=== PATIENT | female | born 1980 | race African-American/Black ===

== ENCOUNTER 2020-09-16 21:32 | Emergency (ER) | payer BC, OTHER ==
[~2020-09-16] VITALS: Ht 165.1 cm; Wt 97.5 kg
--- NOTE | ~2020-09-16 | EMS ---
[address] [address] EMS Patient Care Report Name: SORAIDA PETERSEN Room #: DEP SERGIO Guzman#: [id number] Admission: 09/16/20 Attend Phys: Discharge: 09/17/20 Date of : 82 Report #: [id number] THIS REPORT FOR: //name// Report Transmitted: 09/17/2020 05:58 EMS Care Summary [facility] Incident [id number] @ 09/16/2020 20:55 Incident Location [address] [place] [address] Patient SORAIDA PETERSEN Female, 40 Years 1980 Patient Address [address] [place] [address] Patient History Brain Tumor, Patient Allergies No known allergies, Patient Medications None Reported, Chief Complaint near syncopal episode Disposition Transported No Lights/[place] Dispatch Reason Sick Person Transported To [facility] Narrative DISPATCHED EMERGENT RESPONDED EMERGENT ON A SICK. ARRIVED ON SCENE WITHOUT INCIDENT. UPON ARRIVAL PATIENT WAS FOUND SEATED IN LIVING ROOM OF RESIDENCE. PATIENT [address] [address] EMS Patient Care Report Name: SORAIDA PETERSEN Room #: DEP [facility]#: [id number] Admission: 09/16/20 Attend Phys: Discharge: 09/17/20 Date of : 82 Report #: [id number] ALERT AND ORIENTED X4 REPORTING THAT SHE FELT DIZZY AND WEAK SUDDENLY JUST PRIOR TO CALLING EMS. PATIENT STATED SHE WAS STANDING AND WALKING THROUGH RESIDENCE WHEN THIS SUDDENLY OCCURRED. PATIENT ALSO REPORTED MOMENTARY SHORTNESS OF BREATH. PATIENT SAT DOWN AND DRANK WATER AND BEGAN TO FEEL BETTER. AT THIS TIME PATIENT REPORTS SHE IS FEELING BETTER BUT STILL REPORTS MILD DIZZINESS. PATIENT REPORTS SHE HAS NEVER HAD A SYNCOPAL EPISODE BUT SHE BELIEVES SHE WAS ABOUT TO PASS OUT. PATIENT REPORTS HAVING HISTORY OF BRAIN TUMOR WELL AND IS REQUESTING TRANSPORT TO [facility] AT THIS TIME. PATIENT IS ASSISTED TO STRETCHER AT FRONT DOOR OF RESIDENCE. SEATED ON STRETCHER, SECURED WITH RESTRAINTS AND TAKEN TO AMBULANCE. EN ROUTE PATIENT DENIES ANY NEW COMPLAINTS. NO CHANGE IN CURRENT COMPLAINTSS. PATIENT REMAINS CALM AND COOPERATIVE ON STRETCHER. PATIENT REQUESTED TO WAIT UNTIL ARRIVAL TO HOSPITAL FOR IV ACCESS. PATIENT DENIES ANY COVID SYMPTOMS, DENIES ANY COVID EXPOSURE. VITALS MONITORED THROUGHOUT TRANSPORT. RADIO REPORT CALLED TO ED. UPON ARRIVAL TO ED PATIENT IS TAKEN TO ED ROOM WHERE PATIENT REPORT IS GIVEN DIRECTLY TO RN AT BEDSIDE. PATIENT IS ABLE TO SCOOT FROM STRETCHER TO BED WITHOUT DIFFICULTY. PATIENT CARE TRANSFERRED DIRECTLY TO RN AT BEDSIDE. PATIENT IN STABLE CONDITION AT TRANSFER OF CARE. Initial Vitals @21:02P: 83,R: 18,Pain: 0/10,GCS: 15,Glucose: 84,SpO2: 99,Revised Trauma: 12, Assessments @21:02MENTAL:Time Oriented,Person Oriented,Place Oriented,Event Oriented,SKIN:HEENT:Eyes: Right Pupil: 4-mm,Eyes: Left Pupil: 4-mm,Head/Face: No Abnormalities,LUNG SOUNDS:General: No Abnormalities,ABDOMEN:General: No Abnormalities,PELVIS//GI:No Abnormalities,EXTREMITIES:Left Arm: No Abnormalities,Right Arm: No Abnormalities,Left Leg: No Abnormalities,Right Leg: No Abnormalities,PULSE:Radial: 2+ Normal,NEURO:No Abnormalities, Impression Syncope / Fainting Procedures @21:04ALS AssessmentResponse: UnchangedSucceeded Timeline 20:54,Call Received 20:54,Psap Call 20:55,Dispatched 20:57,En Route 21:00,Initial Responder On Scene 21:00,On Scene [facility] [address] [place] [address] EMS Patient Care Report Name: NICOLAMELINDASORAIDA Kiara [id number] Admission: 09/16/20 Attend Phys: Discharge: 09/17/20 Date of : 82 Report #: [id number] 21:01,At Patient 21:02,BP: 108/ M,PULSE: 83,RR: 18 R,SPO2: 99 Ox,ETCO2: ,B,PAIN: 0,GCS: 15, 21:04,ALS Assessment,Response: UnchangedSucceeded, 21:11,Depart Scene 21:27,At Destination 21:58,Call Closed Disclaimer v1.1 Copyright 2020 [employer] This EMS Care Summary contains data elements from the applicable legal record (which may be displayed differently). It is designed to provide pertinent information for the following purposes: continuity of care, clinical quality, and state data reporting. The complete legal record is available to ED staff and administrators of the receiving hospital in [facility]'s Patient Tracker. All data is provided "as is."
[~2020-09-16 21:32] MED LIST: APAP500 PO; COLACE 100 MG100 MG PO; IBUPROFEN 800800 M1 PO; IROSPAN 24/6 T1 EACH PO; LANOLIN56 GM; NORCO 10-325 T1 EAC1 PO; TRINATE TABLET1 TAB PO; VITAMIN D400 UNI2 PO
[2020-09-17 01:09] LABS: ABSOLUTE NEUTROPHILS 3.4 thou/uL (1.4-8.2); BASOPHILS 0.9 % (0.0-2.0); HEMOGLOBIN 12.3 gm/dL (12.0-15.0)
[2020-09-17 01:11] LABS: EOSINOPHILS 2.8 % (0.0-3.0); HEMATOCRIT 37.5 % (37.0-47.0); LYMPHOCYTES 31.2 % (24.0-44.0); MCH 28.9 pg (26.0-34.0); MCHC 32.7 g/dL (28.0-37.0); MCV 88.4 fL (80.0-100.0); MONOCYTES 5.4 % (1.0-8.0); PLATELET COUNT 264 thou/uL (150-400); POLYS 59.7 % (36.0-66.0); RBC 4.24 mil/uL (4.20-5.00); RDW 15.3 % (10.5-14.5); WBC 5.7 thou/uL (4.0-11.0)
[2020-09-17 01:18] LABS: ANION GAP 11 mmol/L (7-16); BUN 12 mg/dL (7-18); CHLORIDE 106 mmol/L (98-107); CO2 22 mmol/L (21-32); CREATININE 0.9 mg/dL (0.6-1.0); GLUCOSE 98 mg/dL (74-106); POTASSIUM 3.8 mmol/L (3.5-5.1); SODIUM 139 mmol/L (136-145)
[2020-09-17 01:29] LABS: ALBUMIN 4.2 g/dL (3.4-5.0); DIRECT BILIRUBIN < 0.1 mg/dL (<0.1-0.2); SGOT 23 U/L (15-37); SGPT 29 U/L (30-65); TOTAL BILIRUBIN 0.2 mg/dL (0.2-1.0); TROPONIN-I <0.06 ng/mL (<0.06)
[2020-09-17 01:30] VITALS: BP 123/84
--- NOTE | 2020-09-17 07:28 | EKG ---
[facility] [place] [address] ELECTROCARDIOGRAM REPORT Name: SORAIDA PETERSEN Room #: [facility]#: [id number] Admission: 09/16/20 Attend Phys: Discharge: 09/17/20 Date of : 82 Report #: [id number] THIS REPORT FOR: cc: Darby Rubio MD,Darby Milligan,Luis Alberto [facility] ~ THIS REPORT FOR: //name// [facility] ED Test Date: 2020-09-16 Test Time: 23:17:33 Pat Name: SORAIDA PETERSEN Department: Room: Gender: F [employer] Coater Operator: shauna polanco : 1980 Requested By: Elin Silva Order Number: [id number] MD: Luis Alberto Milligan Measurements Intervals Bally Rate: 73 P: 19 OR: 190 QRS: 22 QRSD: 83 T: -3 QT: 394 QTc: 435 Interpretive Statements Sinus rhythm Borderline T abnormalities, inferior leads No previous ECG available for comparison Electronically Signed On 09-17-2020 7:28:01 QUALITY IMPROVEMENT ANALYST by Luis Alberto Milligan [email or web address] <ELECTRONICALLY SIGNED> By: Luis Alberto Milligan MD, FAC 09/17/20 0728 16 16 Luis Alberto Milligan MD, FACC /EPI
== END 2020-09-17 04:20 | disposition home or self-care (01) ==
LOC: ER 21:32
PROVIDERS: Emergency Medicine
DX: R55 Syncope and collapse (principal); R42 Dizziness and giddiness; R06.02 Shortness of breath; R11.0 Nausea; Z85.841 Personal history of malignant neoplasm of brain; Z79.899 Other long term (current) drug therapy